=== PATIENT | female | born 1970 | race American Indian/Alaskan Native ===

== ENCOUNTER 2017-03-03 01:18 | Emergency (ER) | payer OTHER ==
[2017-03-03 01:37] VITALS: BMI 31.1
[2017-03-03 01:40] VITALS: BP 135/89; PULSE 86; RESP 18; TEMP 98.5; O2SAT 98
--- NOTE | 2017-03-03 01:51 | ED PDOC ---
Arrival/HPI - General Chief Complaint: Allergic Reaction Time Seen by Provider: 03/03/17 01:44 Historian: Patient - History of Present Illness Narrative History of Present Illness (Text): 03/03/17 01:51 Maria Isabel Bueno is a 46 year old female who presents to the Emergency department complaining of an allergic reaction. Patient states she has been experiencing a pruritic rash to her face, eyelids, and bilateral ears for the past 3 days. Patient states she is unsure what triggered the reaction and denies any recent changes in diet, soaps, shampoos, lotions, or deodorants. Patient states she had Benadryl at home with minimal relief. Patient denies any shortness of breath, wheezing, nausea, vomiting, headache, dizziness, or any other complaints. Time/Duration: < week (3 days) Symptom Onset: Gradual Symptom Course: Unchanged Activities at Onset: Rest, Light Context: Home Past Medical History - Provider Review Nursing Documentation Reviewed: Yes - Infectious Disease Hx of Infectious Diseases: None - Tetanus Immunization Tetanus Immunization: Unknown - Endocrine/Metabolic Hx Diabetes Mellitus Type 2: Yes - Psychiatric Hx Depression: No Hx Emotional Abuse: No Hx Physical Abuse: No Hx Substance Use: No - Past Surgical History Past Surgical History: No Previous - Surgical History Other/Comment: ?fibroids - Anesthesia Hx Anesthesia: Yes Hx Anesthesia Reactions: No Hx Malignant Hyperthermia: No - Suicidal Assessment Feels Threatened In Home Enviroment: No Family/Social History - Physician Review Nursing Documentation Reviewed: Yes Family/Social History: No Known Family HX Smoking Status: Never Smoked Hx Alcohol Use: No Hx Substance Use: No Hx Substance Use Treatment: No Allergies/Home Meds Allergies/Adverse Reactions: Allergies No Known Allergies Allergy (Verified 10/15/13 17:41) Home Medications: Home Meds Medication Instructions Recorded Confirmed Lisinopril [Zestril] 1 tab PO DAILY 03/03/17 03/03/17 Sitagliptin Phos/Metformin HCl 1 tab PO BID 03/03/17 03/03/17 [Janumet 50-1,000 mg Tablet] Review of Systems - Physician Review All systems were reviewed & negative as marked: Yes - Review of Systems Constitutional: Normal. absent: Fevers Eyes: Normal ENT: Normal Respiratory: Normal. absent: SOB, Cough Cardiovascular: Normal. absent: Chest Pain Gastrointestinal: Normal. absent: Abdominal Pain, Diarrhea, Nausea, Vomiting Genitourinary Female: Normal. absent: Dysuria, Frequency, Hematuria, Urine Output Changes Musculoskeletal: Normal. absent: Back Pain, Neck Pain Skin: Rash, Pruritis Neurological: Normal. absent: Headache, Dizziness Endocrine: Normal Hemo/Lymphatic: Normal Psychiatric: Normal Physical Exam Vital Signs Reviewed: Yes Vital Signs Temp Pulse Resp BP Pulse Ox 03/03/17 01:40 98.5 F 86 18 135/89 98 Temperature: Afebrile Blood Pressure: Normal Pulse: Regular Respiratory Rate: Normal Appearance: Positive for: Well-Appearing, Non-Toxic, Comfortable Pain Distress: None Mental Status: Positive for: Alert and Oriented X 3 - Systems Exam Head: Present: Atraumatic, Normocephalic Pupils: Present: PERRL Extroacular Muscles: Present: EOMI Conjunctiva: Present: Normal Ears: Present: Normal, NORMAL TM, Normal Canal. No: Erythema, Fluid, TM Perf Mouth: Present: Moist Mucous Membranes Pharnyx: Present: Normal. No: ERYTHEMA, EXUDATE, TONSILS ENLARGED, Peritonsilar Swelling, Uvular Deviation, Muffled/Hoarse Voice, Strider, Soft Palate/Uvular Edema Nose (External): Present: Atraumatic Nose (Internal): Present: Normal Inspection Neck: Present: Normal Range of Motion. No: Meningeal Signs, MIDLINE TENDERNESS , Paraspinal Tenderness Respiratory/Chest: Present: Clear to Auscultation, Good Air Exchange. No: Respiratory Distress, Accessory Muscle Use Cardiovascular: Present: Regular Rate and Rhythm, Normal S1, S2. No: Murmurs Abdomen: Present: Normal Bowel Sounds. No: Tenderness, Distention, Peritoneal Signs Upper Extremity: Present: Normal Inspection. No: Cyanosis, Edema Lower Extremity: Present: Normal Inspection. No: Edema Neurological: Present: GCS=15, CN II-XII Intact, Speech Normal Skin: Present: Warm, Dry, Rashes (Urticaria to facial/upper eyelids, and bilateral ear auricles), Normal Color Psychiatric: Present: Alert, Oriented x 3, Normal Insight, Normal Concentration Medical Decision Making ED Course and Treatment: 03/03/17 01:51 Impression: 46 year old female complaining of an allergic reaction for 3 days. Differential Diagnosis include but are not limited to: allergic reaction vs. urticaria Plan: -- Benadryl -- Pepcid -- Solu-medrol -- Reassess and disposition Progress Notes: 03/03/17 04:10 On re-evaluation, the patient feels better and is in no acute distress. I have discussed the results and plan with the patient, who expresses understanding. Patient in agreement with plan to discharged home. Patient is stable for discharge. Patient was instructed to follow up with physician/clinic in 1-2 days or return if symptoms worsen or new concerning symptoms arise. - Medication Orders Current Medication Orders: Discontinued Medications Diphenhydramine HCl (Benadryl) 25 mg IVP ONCE ONE Stop: 03/03/17 01:56 Last Admin: 03/03/17 02:19 Dose: 25 mg Famotidine (Pepcid) 20 mg IVP STAT STA Stop: 03/03/17 01:56 Last Admin: 03/03/17 02:20 Dose: 20 mg Methylprednisolone (Solu-Medrol) 125 mg IVP ONCE ONE Stop: 03/03/17 01:56 Last Admin: 03/03/17 02:19 Dose: 125 mg - Scribe Statement The provider has reviewed the documentation as recorded by the Brendonibluis Rascon All medical record entries made by the Jahaira were at my direction and personally dictated by me. I have reviewed the chart and agree that the record accurately reflects my personal performance of the history, physical exam, medical decision making, and the department course for this patient. I have also personally directed, reviewed, and agree with the discharge instructions and disposition. Disposition/Present on Arrival - Present on Arrival Any Indicators Present on Arrival: No History of DVT/PE: No History of Uncontrolled Diabetes: No Urinary Catheter: No History of Decub. Ulcer: No History Surgical Site Infection Following: None - Disposition Have Diagnosis and Disposition been Completed?: Yes Diagnosis: Allergic reaction Disposition: HOME/ ROUTINE Disposition Time: 04:12 Patient Plan: Discharge Condition: GOOD Discharge Instructions (ExitCare): Urticaria (ED), Allergies (ED) Additional Instructions: Take meds as prescribed/follow up with your doctor this week Prescriptions: DiphenhydrAMINE [Benadryl] 50 mg PO Q6 PRN #24 cap PRN Reason: Itching / Pruritus Famotidine 20 mg PO BID #20 tablet predniSONE [Prednisone] 40 mg PO DAILY #10 tab
[2017-03-03] MEDS ORDERED: DiphenhydrAMINE 50 mg/ml Inj IVP ONE (01:55)
== END 2017-03-03 05:11 | disposition home or self-care (01) ==
LOC: ED 01:18
DX: L50.0 Allergic urticaria (principal)
CPT/HCPCS: 96374; 96375; 99283; J1200; J2930

== ENCOUNTER 2017-03-28 21:21 | Emergency (ER) | payer OTHER ==
[2017-03-28 21:22] VITALS: BMI 31.1
[2017-03-28 21:30] VITALS: TEMP 98.9
[2017-03-28] MEDS ORDERED: Vancomycin 1gm in NS 250ml 1 GM/250 ML BAG IVPB STA (22:09)
[2017-03-28] MEDS ORDERED: Piperacillin/Tazobact 3.375 gm 100 ML IVPB STA (22:10)
[2017-03-28 22:39] LABS: ADD MANUAL DIFF? NO
[2017-03-28 22:42] LABS: BASO # 0.02 K/mm3 (0.0-2.0); BASO % 0.2 % (0.0-3.0); EOS # 0.1 (0.0-0.7); EOS % 1.1 % (1.5-5.0); GRAN # 6.87 (1.4-6.5); HEMATOCRIT 34.7 % (36.0-48.0); LYMPH # 2.4 (1.2-3.4); LYMPH % 24.2 % (22.0-35.0); MEAN CELL VOLUME 84.2 fL (80.0-105.0); MEAN CORPUSCULAR HEMOGLOBIN 30.3 pg (25.0-35.0); MEAN PLATELET VOLUME 10.7 fl (7.0-11.0); MONO # 0.4 (0.1-0.6); MONO % 4.5 % (1.0-6.0); PLATELET COUNT 214 10^3/uL (120.0-450.0); RED CELL DISTRIBUTION WIDTH 13.4 % (11.5-14.5); WHITE BLOOD COUNT 9.8 10^3/ul (4.5-11.0)
[2017-03-28 22:54] LABS: ALB/GLOB RATIO 1.2 (1.1-1.8); ALKALINE PHOSPHATASE 53 U/L (38-133); ALT/SGPT 25 U/L (7-56); AST/SGOT 19 U/L (15-39); BILIRUBIN,TOTAL 0.9 mg/dL (0.2-1.3); BLOOD UREA NITROGEN 9 mg/dL (7-21); CALCIUM 9.6 mg/dL (8.4-10.5); CARBON DIOXIDE 24 mmol/L (21-33); CHLORIDE 104 mmol/L (98-107); GFR AFRICAN-AMERICAN > 60; GLUCOSE,RANDOM 111 mg/dL (70-110); POTASSIUM 3.4 mmol/L (3.6-5.0); SODIUM 137 mmol/L (132-148); TOTAL PROTEIN 7.6 g/dL (5.8-8.3)
[2017-03-28 23:34] VITALS: RESP 16
[2017-03-28] MEDS ORDERED: Potassium Chloride 20 mEq/15 ml LIQ UD PO STA (23:52)
--- NOTE | 2017-03-28 23:58 | ED PDOC ---
Arrival/HPI - General Chief Complaint: Abnormal Skin Integrity Time Seen by Provider: 03/28/17 22:09 Historian: Patient - History of Present Illness Narrative History of Present Illness (Text): 03/29/17 00:00 Patient with past medical history diabetes, complains of a painful mass of gradually increasing size of the R posterior aspect of the neck. Denies headache , ear pain, URI symptoms, sore throat, trauma, injury, back pain. Otherwise: (- ) foreign body, (-) fever, (-) chills, (-) recent antibiotic use. PMD Wassef Past Medical History - Provider Review Nursing Documentation Reviewed: Yes - Infectious Disease Hx of Infectious Diseases: None - Tetanus Immunization Tetanus Immunization: Unknown - Cardiac Hx Cardiac Disorders: No - Pulmonary Hx Respiratory Disorders: No - Renal Hx Renal Disorder: No - Endocrine/Metabolic Hx Endocrine Disorders: Yes Hx Diabetes Mellitus Type 2: Yes - Hematological/Oncological Hx Blood Disorders: No - Musculoskeletal/Rheumatological Hx Musculoskeletal Disorders: No - Gastrointestinal Hx Gastrointestinal Disorders: No - Genitourinary/Gynecological Hx Genitourinary Disorders: No - Psychiatric Hx Depression: No Hx Emotional Abuse: No Hx Physical Abuse: No Hx Substance Use: No - Past Surgical History Past Surgical History: No Previous - Surgical History Other/Comment: ?fibroids - Anesthesia Hx Anesthesia: Yes Hx Anesthesia Reactions: No Hx Malignant Hyperthermia: No - Suicidal Assessment Feels Threatened In Home Enviroment: No Family/Social History - Physician Review Nursing Documentation Reviewed: Yes Family/Social History: No Known Family HX Smoking Status: Never Smoked Hx Alcohol Use: No Hx Substance Use: No Hx Substance Use Treatment: No Allergies/Home Meds Allergies/Adverse Reactions: Allergies No Known Allergies Allergy (Verified 03/28/17 21:25) Home Medications: Home Meds Medication Instructions Recorded Confirmed Lisinopril [Zestril] 1 tab PO DAILY 03/03/17 03/28/17 Sitagliptin Phos/Metformin HCl 1 tab PO BID 03/03/17 03/28/17 [Janumet 50-1,000 mg Tablet] GlipiZIDE [Glucotrol] 5 mg PO DAILY 03/28/17 03/28/17 Review of Systems - Review of Systems Constitutional: Normal. absent: Fatigue, Weight Change, Fevers ENT: Normal. absent: Sore Throat, Rhinorrhea, Sinus Congestion Respiratory: Normal. absent: SOB, Cough, Sputum Cardiovascular: Normal. absent: Chest Pain, Palpitations Musculoskeletal: Normal. absent: Arthralgias, Back Pain, Neck Pain Skin: Normal, Abscess. absent: Rash, Pruritis, Skin Lesions Physical Exam Vital Signs Reviewed: Yes Vital Signs Temp Pulse Resp BP Pulse Ox 03/28/17 23:15 91 H 16 135/89 100 03/28/17 21:28 98.9 F 99 H 18 137/91 H 100 Temperature: Afebrile Blood Pressure: Normal Pulse: Regular Respiratory Rate: Normal Appearance: Positive for: Well-Appearing, Non-Toxic, Comfortable Pain Distress: Moderate Mental Status: Positive for: Alert and Oriented X 3 - Systems Exam Head: Present: Atraumatic, Normocephalic Pupils: Present: PERRL Extroacular Muscles: Present: EOMI Conjunctiva: Present: Normal Ears: Present: Normal, NORMAL TM, Normal Canal. No: Erythema, TM Bulging Mouth: Present: Moist Mucous Membranes Pharnyx: Present: Normal. No: ERYTHEMA, EXUDATE Neck: Present: Normal Range of Motion. No: Meningeal Signs, MIDLINE TENDERNESS Respiratory/Chest: Present: Clear to Auscultation, Good Air Exchange. No: Respiratory Distress, Accessory Muscle Use, Wheezes, Rales, Rhonchi Cardiovascular: Present: Regular Rate and Rhythm, Normal S1, S2. No: Murmurs Back: Present: Normal Inspection. No: CVA Tenderness, Midline Tenderness Upper Extremity: Present: Normal Inspection, Normal ROM, NORMAL PULSES, Neurovascularly Intact, Capillary Refill < 2s. No: Edema Lower Extremity: Present: Normal Inspection, NORMAL PULSES, Normal ROM, Neurovascularly Intact, Capillary Refill < 2 s. No: Edema, Tenderness Neurological: Present: GCS=15, CN II-XII Intact, Speech Normal, Motor Func Grossly Intact, Normal Sensory Function Skin: Present: Warm, Dry, Abscess (5 x 5 cm erythematous tender indurated nonfluctuant abscess to the posterior R side of the neck proximal to the hair line. ). No: Rashes Lymphatic: No: Cervical Adenopathy Psychiatric: Present: Alert, Oriented x 3, Normal Insight, Normal Concentration Medical Decision Making ED Course and Treatment: 03/28/17 23:56 46-year-old female with past medical history of diabetes, presents with 2 day history of painful mass to the R posterior aspect of her neck. Based on history and exam likely abscess consider cellulitis versus lymphadenopathy. Plan: -- Labs -- IV fluids -- Zosyn IV -- Vancomycin IV -- Toradol -- Reassess and disposition -- Blood cultures 03/29/17 00:02 Lab results reviewed and are within normal limits, WBC is normal. On reevaluation, the patient remains awake, alert, oriented 3. Patient reports improvement of pain and has no additional complaints at this time. Lab results was discussed with the patient in great detail. Based on history, exam and diagnostic results plan will be for outpatient follow -up with PMD. Patient given referral to general surgeon and advised to follow- up with the surgeon in 2 days without fail. Prescription for antibiotics provided to the patient. Advised to apply warm compresses to the area. Patient states she fully agrees with and understands discharge instructions. States that she agrees with the plan and disposition. Verbalized and repeated discharge instructions and plan. I have given the patient opportunity to ask any additional questions. Follow up with primary care physician and surgery referral provided in 1-2 days without fail. Advised to take medication as prescribed. Return to the emergency room at any time for any new or worsening symptoms. - Lab Interpretations Lab Results: 03/28/17 22:27 03/28/17 22:27 Lab Results 03/28/17 22:27: Sodium 137, Potassium 3.4 L, Chloride 104, Carbon Dioxide 24, Anion Gap 12, BUN 9, Creatinine 0.8, Est GFR ( Amer) > 60, Est GFR (Non- Af Amer) > 60, Random Glucose 111 H, Calcium 9.6, Total Bilirubin 0.9, AST 19, ALT 25, Alkaline Phosphatase 53, Total Protein 7.6, Albumin 4.1, Globulin 3.5, Albumin/Globulin Ratio 1.2 03/28/17 22:27: WBC 9.8, RBC 4.12, Hgb 12.5, Hct 34.7 L, MCV 84.2, MCH 30.3, MCHC 36.0, RDW 13.4, Plt Count 214, MPV 10.7, Gran % 70.0 H, Lymph % (Auto) 24.2 , [facility] % (Auto) 4.5, Eos % (Auto) 1.1 L, Baso % (Auto) 0.2, Gran # 6.87 H, Lymph # 2.4, [facility] # 0.4, Eos # 0.1, Baso # 0.02 I have reviewed the lab results: Yes Interpretation: All labs normal - Medication Orders Current Medication Orders: Discontinued Medications Vancomycin HCl (Vancomycin 1gm) 1 gm in 250 mls @ 167 mls/hr IVPB STAT STA PRN Reason: Protocol Stop: 03/28/17 23:38 Piperacillin Sod/Tazobactam Sod (Zosyn 3.375 In Ns 100ml) 100 mls @ 200 mls/hr IVPB STAT STA PRN Reason: Protocol Stop: 03/28/17 22:39 Last Admin: 03/28/17 23:11 Dose: 200 mls/hr Ketorolac Tromethamine (Toradol) 30 mg IVP STAT STA Stop: 03/28/17 22:12 Last Admin: 03/28/17 22:33 Dose: 30 mg Potassium Chloride (Potassium Chloride Oral Soln) 40 meq PO STAT STA Stop: 03/28/17 23:53 - PA / [employer]CHNICIAN / Resident Statement / has reviewed & agrees with the documentation as recorded. Disposition/Present on Arrival - Present on Arrival Any Indicators Present on Arrival: No History of DVT/PE: No History of Uncontrolled Diabetes: No Urinary Catheter: No History of Decub. Ulcer: No History Surgical Site Infection Following: None - Disposition Have Diagnosis and Disposition been Completed?: Yes Diagnosis: Abscess Disposition: HOME/ ROUTINE Disposition Time: 23:30 Patient Plan: Discharge Patient Problems: Current Active Problems Problem Status Onset Abscess Acute Condition: STABLE Discharge Instructions (ExitCare): Abscess (ED) Print Language: KAZAKH Additional Instructions: Thank you for letting us take care of you today. You were treated for abscess. The emergency medical care you received today was directed at your acute symptoms. If you were prescribed any medication, please fill it and take as directed. It may take several days for your symptoms to resolve. Return to the Emergency Department if your symptoms worsen, do not improve, or if you have any other problems. Please contact your doctor in 2 days for re-evaluation and follow up / or call one of the physicians/clinics you have been referred to that are listed on the Patient Visit Information form that is included in your discharge packet. Bring any paperwork you were given at discharge with you along with any medications you are taking to your follow up visit. Our treatment cannot replace ongoing medical care by a primary care provider (PCP) outside of the emergency department. Thank you for allowing the [facility] team to be part of your care today. Prescriptions: Cephalexin [Keflex] 500 mg PO Q6 #28 capsule Naproxen 500 mg PO BID #30 tab Sulfamethoxazole/Trimethoprim [Bactrim DS 800 mg-160 mg] 2 tab PO BID #28 tab Referrals: Carlos Neal MD [Primary Care Provider] - Follow up with primary Norris Guaman MD [Staff Provider] - Follow up with primary Forms: WORK NOTE
[2017-03-29 01:41] VITALS: BP 137/92; PULSE 89; O2SAT 100
== END 2017-03-29 01:42 | disposition home or self-care (01) ==
LOC: ED 21:21
DX: L02.11 Cutaneous abscess of neck (principal)
CPT/HCPCS: 80053; 85025; 87040; 96374; 99285; J1885; J2543